=== PATIENT | male | born 1965 | race American Indian/Alaskan Native ===

== ENCOUNTER 2022-05-24 23:05 | Inpatient (IN) | payer MEDICAID ==
--- NOTE | 2022-05-24 23:42 | Emergency Department Report ---
ED General Adult HPI - General Chief complaint: High BP Stated complaint: FALL/BACK PAIN Time Seen by Provider: 05/24/22 23:40 Source: patient, EMS (Verbal report received from emergency medical services. EMS documentation not available at time of chart dictation ), RN notes reviewed Mode of arrival: Ambulatory Limitations: Physical Limitation - History of Present Illness Initial comments: The patient was evaluated in the emergency department for symptoms described in the history of present illness. He/she was evaluated in the context of the global COVID-19 pandemic, which necessitated consideration that the patient might be at risk for infection with the virus that causes COVID-19. Institutional protocols and algorithms that pertain to the evaluation of patients at risk for COVID-19 are in a state of rapid change based on information released by regulatory bodies including the CDC and federal and state organizations. These policies and algorithms were followed during the patient's care in the emergency department. Please note that these policies, procedures and recommendations changed on a rapid basis. This is a 57-year-old gentleman who is legally blind, and who resides in [facility]. He is on hemodialysis and has a right-sided vascular access catheter. He has not received hemodialysis in about a week. He is brought to the hospital today by emergency medical services with an EMS articulated complaint of mechanical fall onto his back. Patient states that he slipped and landed on his right lateral chest and back. He did not hit his head. He currently denies headache, midline neck pain, chest pain, abdominal pain and shortness of breath. He has right-sided rib cage pain, and diffuse back pain. He does produce urine. He denies urinary symptoms. Denies focal extremity weakness and numbness. He does admit that he feels like he is probably due for dialysis. He does not have dialysis access out here in [place]. Location: chest, back, right Quality: aching Consistency: constant Improves with: rest Worsens with: movement - Related Data Allergies Allergy/AdvReac Type Severity Reaction Status Date / Time No Known Allergies Allergy Unverified 05/24/22 23:17 ED Review of Systems ROS: Stated complaint: FALL/BACK PAIN Other details as noted in HPI Constitutional: denies: fever Eyes: denies: eye discharge ENT: denies: epistaxis Respiratory: denies: wheezing Cardiovascular: denies: chest pain Gastrointestinal: denies: abdominal pain Musculoskeletal: back pain, arthralgia, myalgia Neurological: denies: weakness Psychiatric: anxiety ED Physical Exam - General Limitations: Physical Limitation, Other (Patient reports that he is blind) General appearance: alert, anxious, in distress, obese - Head Head exam: Present: atraumatic, normocephalic - Eye Eye exam: Present: normal appearance, EOMI. Absent: nystagmus - ENT ENT exam: Present: normal exam, normal orophraynx, mucous membranes moist, normal external ear exam - Neck Neck exam: Present: normal inspection, full ROM. Absent: tenderness, meningismus - Respiratory Respiratory exam: Present: normal lung sounds bilaterally, chest wall tenderness, other (There is a right-sided thoracic vascular access catheter note d, without redness, pus or streaking). Absent: respiratory distress, wheezes, rales, rhonchi, stridor - Cardiovascular Cardiovascular Exam: Present: normal rhythm, tachycardia, normal heart sounds. Absent: bradycardia, irregular rhythm, systolic murmur, diastolic murmur, rubs, gallop - GI/Abdominal GI/Abdominal exam: Present: soft. Absent: distended, tenderness, guarding, rebound, rigid, pulsatile mass - Rectal Rectal exam: Present: deferred - Extremities Exam Extremities exam: Present: normal inspection, full ROM, other (2+ pulses noted in the bilateral upper and lower extremities. There is no palpable cord. negative Homans sign. Muscular compartments are soft. The pelvis is stable.). Absent: pedal edema, calf tenderness - Back Exam Back exam: Present: normal inspection, muscle spasm, paraspinal tenderness. Absent: CVA tenderness (R), CVA tenderness (L) - Neurological Exam Neurological exam: Present: alert, other (There is no facial droop. The tongue is midline. EOMI. 5 out of 5 strength in 4 extremities) - Psychiatric Psychiatric exam: Present: anxious - Skin Skin exam: Present: warm, dry, intact, normal color. Absent: rash ED Course Vital Signs 05/24/22 05/25/22 05/25/22 23:14 00:13 00:16 Temperature 98.2 F Pulse Rate 120 H Pulse Rate [ Bilateral Throughout] Respiratory 16 Rate Respiratory Rate [Bilateral Throughout] Blood Pressure Blood Pressure 240/120 [Right] O2 Sat by Pulse 98 100 99 Oximetry 05/25/22 05/25/22 05/25/22 00:30 00:31 00:34 Temperature Pulse Rate 84 98 H Pulse Rate [ Bilateral Throughout] Respiratory 12 Rate Respiratory Rate [Bilateral Throughout] Blood Pressure 245/98 245/90 Blood Pressure [Right] O2 Sat by Pulse 99 100 Oximetry 05/25/22 05/25/22 05/25/22 00:46 01:00 01:09 Temperature Pulse Rate 82 81 82 Pulse Rate [ Bilateral Throughout] Respiratory 17 11 L Rate Respiratory Rate [Bilateral Throughout] Blood Pressure 210/87 215/100 183/81 Blood Pressure [Right] O2 Sat by Pulse 96 99 Oximetry 05/25/22 05/25/22 05/25/22 01:16 01:30 01:32 Temperature Pulse Rate 81 82 Pulse Rate [ Bilateral Throughout] Respiratory 13 16 Rate Respiratory Rate [Bilateral Throughout] Blood Pressure 183/82 176/84 Blood Pressure 176/84 [Right] O2 Sat by Pulse 97 99 Oximetry 05/25/22 05/25/22 05/25/22 01:46 02:00 02:11 Temperature Pulse Rate 83 Pulse Rate [ 88 Bilateral Throughout] Respiratory 17 16 Rate Respiratory 23 Rate [Bilateral Throughout] Blood Pressure 185/80 172/79 Blood Pressure [Right] O2 Sat by Pulse 100 98 Oximetry 05/25/22 02:16 Temperature Pulse Rate Pulse Rate [ Bilateral Throughout] Respiratory 17 Rate Respiratory Rate [Bilateral Throughout] Blood Pressure 217/75 Blood Pressure [Right] O2 Sat by Pulse 100 Oximetry - Reevaluation(s) Reevaluation #1: 05/25/22 01:01 Differential diagnosis, including but not limited to: Contusion, soft tissue in jury, hypertensive urgency, azotemia, uremia, hyperkalemia, metabolic acidosis Assessment and plan: 57-year-old gentleman status post mechanical fall. X-ray of the chest shows no fracture or dislocation. T and L-spine x-rays are pending. Patient is also markedly hypertensive. He will likely require dialysis. We will medicate his mechanical pain with morphine. We will withhold NSAIDs. He did not hit his head. Patient is clinically sober at this time. The cervical spine is cleared through nexus and solomon islander c spine rule Initial blood pressure elevated persistently after labetalol, we will redosed labetalol. Patient informed that he will likely require admission to the medical service for hemodialysis. He endorsed that he is agreeable to this plan of care. Currently awaiting laboratory studies 05/25/22 01:04 05/25/22 01:46 Patient is found to have hyperkalemia, metabolic acidosis, azotemia, uremia, and hypocalcemia. Calcium gluconate ordered. Hyperkalemia cocktail ordered. Repeat blood pressure in the 170s/180s. I contacted hospital physician, Dr. Lubin, And nephrology on-call, Dr. Jones I discussed the patient's history, physical, laboratory studies and clinical impression. Nephrology will arrange for emergency hemodialysis. [facility] medicine to arrange admission to the internal medicine service. 05/25/22 04:36 X-ray of the thoracic and lumbar spine negative for acute findings. ED Medical Decision Making - Lab Data Result diagrams: 05/25/22 00:47 05/25/22 00:47 Vital Signs 05/24/22 05/25/22 05/25/22 23:14 00:31 00:34 Temperature 98.2 F Pulse Rate 120 H 98 H Respiratory 16 Rate Blood Pressure 245/90 Blood Pressure 240/120 [Right] O2 Sat by Pulse 98 100 Oximetry Lab Results 05/25/22 05/25/22 05/25/22 Range/Units 00:47 00:47 00:47 WBC 4.8 (4.5-11.0) K/mm3 RBC 3.55 L (3.65-5.03) M/mm3 Hgb 10.9 L (11.8-15.2) gm/dl Hct 34.1 L (35.5-45.6) % MCV 96 H (84-94) fl MCH 31 (28-32) pg MCHC 32 (32-34) % RDW 21.9 H (13.2-15.2) % Plt Count 145 (140-440) K/mm3 Lymph % (Auto) 21.1 (13.4-35.0) % Chambers % (Auto) 8.7 H (0.0-7.3) % Eos % (Auto) 3.6 (0.0-4.3) % Baso % (Auto) 1.2 (0.0-1.8) % Lymph # (Auto) 1.0 L (1.2-5.4) K/mm3 Chambers # (Auto) 0.4 (0.0-0.8) K/mm3 Eos # (Auto) 0.2 (0.0-0.4) K/mm3 Baso # (Auto) 0.1 (0.0-0.1) K/mm3 Seg Neutrophils % 65.4 (40.0-70.0) % Seg Neutrophils # 3.2 (1.8-7.7) K/mm3 PT 14.5 (12.2-14.9) Sec. INR 0.99 (0.87-1.13) Sodium 142 (137-145) mmol/L Potassium 7.2 H* (3.6-5.0) mmol/L Chloride 105.1 (98-107) mmol/L Carbon Dioxide 15 L (22-30) mmol/L Anion Gap 29 mmol/L Creatinine 19.6 H (0.8-1.3) mg/dL Estimated GFR 3 ml/min Glucose 106 H (75-100) mg/dL Calcium 5.9 L* (8.4-10.2) mg/dL Magnesium 2.80 H (1.7-2.3) mg/dL Total Bilirubin 0.20 (0.1-1.2) mg/dL AST 15 (5-40) units/L ALT 12 (7-56) units/L Alkaline Phosphatase 159 H (35-129) units/L Total Creatine Kinase 599 H (55-170) units/L NT-Pro-B Natriuret Pep 6899 H (0-900) pg/mL Total Protein 7.2 (6.3-8.2) g/dL Albumin 4.6 (3.9-5) g/dL Albumin/Globulin Ratio 1.8 % - EKG Data -: EKG Interpreted by Nv EKG shows normal: sinus rhythm Rate: normal - EKG Data When compared to previous EKG there are: previous EKG unavailable 05/25/22 00:58 The EKG is interpreted at 12: 14 Sinus rhythm, 90 bpm. There is a leftward axis deviation, with a left anterior fascicular block. There is symmetric peak T waves, and left ventricular hypertrophy. The QTC is 4 9 9 ms. The NE interval is 201 ms. The patient denies chest pain. This is an abnormal EKG. This is not a STEMI. - Radiology Data Radiology results: pending, report reviewed, image reviewed [facility] [address] [place] [address] XRay Report Signed Patient: RADHA ANTONIO MR#: [id number] : 1965 Acct:[id number] Age/Sex: 57 / M ADM Date: 05/24/22 Loc: ED Attending Dr: Ordering Physician: ASHLEY NESBITT MD Date of Service: 05/24/22 Procedure(s): XR chest routine 2V Accession Number(s): [id number] cc: ASHLEY NESBITT MD Fluoro Time In Minutes: CHEST 2 VIEWS INDICATION / CLINICAL INFORMATION: fall back apin rib pain. COMPARISON: None available. FINDINGS: SUPPORT DEVICES: Right IJ central venous catheter with tip at the cavoatrial junction. HEART / MEDIASTINUM: No significant abnormality. LUNGS / PLEURA: No significant pulmonary or pleural abnormality. No pneumothorax. ADDITIONAL FINDINGS: No significant additional findings. IMPRESSION: 1. No acute findings. Signer Name: Rene Street DO Signed: 05/25/2022 12:21 AM Workstation Name: [id number] Transcribed By: HYACINTH Dictated By: RENE STREET DO Electronically Authenticated By: RENE STREET DO Signed Date/Time: 05/25/2220 DD/ TD/TT: Critical Care Time: Yes Critical care time in (mins) excluding proc time.: 35 Critical care attestation.: If time is entered above; I have spent that time in minutes in the direct care of this critically ill patient, excluding procedure time. ED Disposition Clinical Impression: Hypertensive urgency, malignant, End-stage renal disease needing dialysis, Legally blind, Fall, Back pain, Rib pain on right side, Hyperkalemia, Hypocalcemia Disposition: ADMITTED INPATIENT Is pt being admited?: Yes Does the pt Need Aspirin: No Condition: Serious
[2022-05-24] MEDS ORDERED: MORPHINE 4 MG/1 ML INJ IV ONE (23:52)
--- NOTE | 2022-05-25 00:26 | XRay Report ---
CHEST 2 VIEWS INDICATION / CLINICAL INFORMATION: fall back apin rib pain. COMPARISON: None available. FINDINGS: SUPPORT DEVICES: Right IJ central venous catheter with tip at the cavoatrial junction. HEART / MEDIASTINUM: No significant abnormality. LUNGS / PLEURA: No significant pulmonary or pleural abnormality. No pneumothorax. ADDITIONAL FINDINGS: No significant additional findings. IMPRESSION: 1. No acute findings. Signer Name: Rene Mohr DO Signed: 05/25/2022 12:21 AM Workstation Name: [id number]
[2022-05-25 01:10] LABS: Basophils # (Auto) 0.1 K/mm3 (0.0-0.1); Basophils % (Auto) 1.2 % (0.0-1.8); Eosinophils # (Auto) 0.2 K/mm3 (0.0-0.4); Eosinophils % (Auto) 3.6 % (0.0-4.3); Hematocrit 34.1 % (35.5-45.6); Hemoglobin 10.9 gm/dl (11.8-15.2); Lymphocytes % (Auto) 21.1 % (13.4-35.0); Mean Corpuscular HGB Conc 32 % (32-34); Mean Corpuscular Volume 96 fl (84-94); Monocytes # (Auto) 0.4 K/mm3 (0.0-0.8); Monocytes % (Auto) 8.7 % (0.0-7.3); Platelet Count 145 K/mm3 (140-440); Red Blood Count 3.55 M/mm3 (3.65-5.03)
[2022-05-25 01:12] LABS: Red Cell Distribution Width 21.9 % (13.2-15.2)
[2022-05-25 01:35] LABS: Albumin 4.6 g/dL (3.9-5)
[2022-05-25 01:40] LABS: Calcium 5.9 mg/dL (8.4-10.2); INR 0.99 (0.87-1.13)
[2022-05-25] MEDS ORDERED: INSULIN REGULAR, HUMAN 100 UNITS/1 ML IV ONE (01:40)
[2022-05-25] MEDS ORDERED: DEXTROSE 50% IN WATER (25GM) 50 ML SYRINGE IV ONE (01:40)
[2022-05-25] MEDS ORDERED: ALBUTEROL 2.5 MG/3 ML NEBU IH ONE (01:40)
[2022-05-25] MEDS ORDERED: SODIUM POLYSTYRENE 15 GM/60 ML ORAL LIQD PO ONE (01:40)
[2022-05-25] MEDS ORDERED: SODIUM BICARB 8.4% 50 MEQ/50 ML SYRINGE IV ONE (01:41)
[2022-05-25] MEDS ORDERED: MORPHINE 2 MG/1 ML INJ IV PRN (02:04)
[2022-05-25] MEDS ORDERED: ACETAMINOPHEN 325 MG TAB PO PRN (02:04)
[2022-05-25] MEDS ORDERED: ONDANSETRON 4 MG/2 ML INJ IV PRN (02:04)
[2022-05-25] MEDS ORDERED: ALBUTEROL 2.5 MG/3 ML NEBU IH PRN (02:04)
--- NOTE | 2022-05-25 02:10 | History and Physical Report ---
History of Present Illness Date of examination: 05/25/22 Date of admission: 05/25/22 Chief complaint: High blood pressure Fall Back pain History of present illness: 57-year-old with history of end-stage renal disease on hemodialysis and blindness, who resides in [facility] was brought to the hospital because of high blood pressure, fall and back pain. He is on hemodialysis and has a right-sided vascular access catheter. He has not received hemodialysis in about a week. He is brought to the hospital today by emergency medical services with an EMS articulated complaint of mechanical fall onto his back. Patient states that he slipped and landed on his right lateral chest and back. He did not hit his head. He currently denies headache, midline neck pain, chest pain, abdominal pain and shortness of breath. He has right-sided rib cage pain, and diffuse back pain. He does produce urine. He denies urinary symptoms. Denies focal extremity weakness and numbness. In the emergency room patient is found to have potassium of 7.2, BUN of 114 and creatinine 19.6, bicarb 15 and calcium 5.9. Patient does not have any hemodialysis access in [place]. Subsequently Case was discussed with on-call personal financial counselor patient already get insulin, D50, calcium gluconate. Nephrology will do the emergent dialysis. Past History Past Medical History: ESRD (Legally blind), renal failure, other Past Surgical History: No surgical history Social history: no significant social history Family history: hypertension Medications and Allergies Allergies Allergy/AdvReac Type Severity Reaction Status Date / Time No Known Allergies Allergy Unverified 05/24/22 23:17 Active Meds: Active Medications Acetaminophen (Acetaminophen 325 Mg Tab) 650 mg PO Q4H PRN PRN Reason: Pain MILD(1-3)/Fever >100.5/JONES Albuterol (Albuterol 2.5 Mg/3 Ml Nebu) 2.5 mg IH Q3HRT PRN PRN Reason: Shortness Of Breath Albuterol/Ipratropium (Ipratropium/Albuterol Sulfate 3 Ml Ampul.Neb) 1 ampul IH Q6HRT ABE Famotidine (Famotidine 20 Mg Tab) 20 mg PO BID ABE Calcium Gluconate 2,000 mg/ (Sodium Chloride) 120 mls @ 660 mls/hr IV ONCE ONE Stop: 05/25/22 02:50 Morphine Sulfate (Morphine 2 Mg/1 Ml Inj) 2 mg IV Q4H PRN PRN Reason: Pain, Moderate (4-6) Morphine Sulfate (Morphine 4 Mg/1 Ml Inj) 4 mg IV Q4H PRN PRN Reason: Pain , Severe (7-10) Ondansetron HCl (Ondansetron 4 Mg/2 Ml Inj) 4 mg IV Q8H PRN PRN Reason: Nausea And Vomiting Sodium Chloride (Sodium Chloride 0.9% 10 Ml Flush Syringe) 10 ml IV BID ABE Sodium Chloride (Sodium Chloride 0.9% 10 Ml Flush Syringe) 10 ml IV PRN PRN PRN Reason: LINE FLUSH Review of Systems All systems: negative Constitutional: other (Complaint fall back pain, right-sided rib cage pain) Exam - Constitutional Vitals: Temp Pulse Resp BP Pulse Ox 98.2 F 82 16 176/84 99 05/24/22 23:14 05/25/22 01:30 05/25/22 01:30 05/25/22 01:32 05/25/22 01:30 General appearance: Present: no acute distress, well-nourished - EENT Eyes: Present: PERRL ENT: hearing intact, clear oral mucosa - Neck Neck: Present: supple, normal ROM - Respiratory Respiratory effort: normal Respiratory: bilateral: diminished - Cardiovascular Heart Sounds: Present: S1 & S2. Absent: rub, click - Extremities Extremities: pulses symmetrical, No edema Peripheral Pulses: within normal limits - Abdominal General gastrointestinal: Present: soft, non-tender, non-distended, normal bowel sounds Male genitourinary: Present: normal - Integumentary Integumentary: Present: clear, warm, dry - Musculoskeletal Musculoskeletal: gait normal, strength equal bilaterally - Psychiatric Psychiatric: appropriate mood/affect, intact judgment & insight - Neurologic Neurologic: CNII-XII intact, moves all extremities Results - Labs CBC & Chem 7: 05/25/22 00:47 05/25/22 00:47 Labs: Laboratory Last Values WBC 4.8 K/mm3 (4.5-11.0) 05/25/22 00:47 RBC 3.55 M/mm3 (3.65-5.03) L 05/25/22 00:47 Hgb 10.9 gm/dl (11.8-15.2) L 05/25/22 00:47 Hct 34.1 % (35.5-45.6) L 05/25/22 00:47 MCV 96 fl (84-94) H 05/25/22 00:47 MCH 31 pg (28-32) 05/25/22 00:47 MCHC 32 % (32-34) 05/25/22 00:47 RDW 21.9 % (13.2-15.2) H 05/25/22 00:47 Plt Count 145 K/mm3 (140-440) 05/25/22 00:47 Lymph % (Auto) 21.1 % (13.4-35.0) 05/25/22 00:47 [place] % (Auto) 8.7 % (0.0-7.3) H 05/25/22 00:47 Eos % (Auto) 3.6 % (0.0-4.3) 05/25/22 00:47 Baso % (Auto) 1.2 % (0.0-1.8) 05/25/22 00:47 Lymph # (Auto) 1.0 K/mm3 (1.2-5.4) L 05/25/22 00:47 [place]uming # (Auto) 0.4 K/mm3 (0.0-0.8) 05/25/22 00:47 Eos # (Auto) 0.2 K/mm3 (0.0-0.4) 05/25/22 00:47 Baso # (Auto) 0.1 K/mm3 (0.0-0.1) 05/25/22 00:47 Seg Neutrophils % 65.4 % (40.0-70.0) 05/25/22 00:47 Seg Neutrophils # 3.2 K/mm3 (1.8-7.7) 05/25/22 00:47 PT 14.5 Sec. (12.2-14.9) 05/25/22 00:47 INR 0.99 (0.87-1.13) 05/25/22 00:47 Sodium 142 mmol/L (137-145) 05/25/22 00:47 Potassium 7.2 mmol/L (3.6-5.0) H* 05/25/22 00:47 Chloride 105.1 mmol/L (98-107) 05/25/22 00:47 Carbon Dioxide 15 mmol/L (22-30) L 05/25/22 00:47 Anion Gap 29 mmol/L 05/25/22 00:47 BUN 114 mg/dL (9-20) H 05/25/22 00:47 Creatinine 19.6 mg/dL (0.8-1.3) H 05/25/22 00:47 Estimated GFR 3 ml/min 05/25/22 00:47 BUN/Creatinine Ratio 6 % 05/25/22 00:47 Glucose 106 mg/dL (75-100) H 05/25/22 00:47 Calcium 5.9 mg/dL (8.4-10.2) L* 05/25/22 00:47 Magnesium 2.80 mg/dL (1.7-2.3) H 05/25/22 00:47 Total Bilirubin 0.20 mg/dL (0.1-1.2) 05/25/22 00:47 AST 15 units/L (5-40) 05/25/22 00:47 ALT 12 units/L (7-56) 05/25/22 00:47 Alkaline Phosphatase 159 units/L (35-129) H 05/25/22 00:47 Total Creatine Kinase 599 units/L (55-170) H 05/25/22 00:47 NT-Pro-B Natriuret Pep 6899 pg/mL (0-900) H 05/25/22 00:47 Total Protein 7.2 g/dL (6.3-8.2) 05/25/22 00:47 Albumin 4.6 g/dL (3.9-5) 05/25/22 00:47 Albumin/Globulin Ratio 1.8 % 05/25/22 00:47 - Imaging and Cardiology Chest x-ray: report reviewed Assessment and Plan VTE prophylaxis?: Mechanical Plan of care discussed with patient/family: Yes - Patient Problems (1) End-stage renal disease needing dialysis Current Visit: Yes Status: Acute Plan to address problem: Admit the patient to the [facility]. Renal diet. Patient already get insulin 10 unit IV x1 dose, D50, calcium gluconate 1 g. Will consult nephrology for emergent dialysis. Recheck BMP in the morning (2) Hyperkalemia Current Visit: Yes Status: Acute Plan to address problem: Patient already get insulin 10 unit IV x1 dose, D50, calcium gluconate 1 g. Will consult nephrology for emergent dialysis. Recheck BMP in the morning (3) Hypertensive urgency, malignant Current Visit: Yes Status: Acute Plan to address problem: Hydralazine 10 mg IV every 6 hours as needed. Labetalol 10 mg IV x1 dose. We continue the home medication we will monitor the blood pressure closely (4) Back pain Current Visit: Yes Status: Acute Plan to address problem: Tylenol 650 mg p.o. every 6 hours as needed. Morphine 2 mg IV every 4 hours as needed. We will monitor the patient closely (5) Fall Current Visit: Yes Status: Acute Plan to address problem: Patient is on fall precaution. Will consult physical therapy for evaluation (6) Hypocalcemia Current Visit: Yes Status: Acute Plan to address problem: Calcium gluconate IV x1 dose. Recheck BMP in the morning (7) Legally blind Current Visit: Yes Status: Acute Plan to address problem: We will monitor the patient closely (8) Rib pain on right side Current Visit: Yes Status: Acute Plan to address problem: Tylenol 650 mg p.o. every 6 hours as needed. Morphine 2 mg IV every 4 hours as needed. We will monitor the patient closely (9) DVT prophylaxis Current Visit: Yes Status: Acute Plan to address problem: SCD for DVT prophylaxis. Pepcid 20 mg p.o. twice daily for GI prophylaxis. Patient is a full code
--- NOTE | 2022-05-25 02:17 | XRay Report ---
THORACIC SPINE 2 VIEWS INDICATION / CLINICAL INFORMATION: fall back pain rib pain. COMPARISON: None available. FINDINGS: VERTEBRAE: No acute fracture. No significant malalignment. DISC SPACES / FACET JOINTS:Scattered spondylosis. PARASPINAL SOFT TISSUES:No significant abnormality. ADDITIONAL FINDINGS: None. Signer Name: Rene Mohr DO Signed: 05/25/2022 2:13 AM Workstation Name: [id number]
--- NOTE | 2022-05-25 02:17 | XRay Report ---
LUMBAR SPINE 2 VIEWS INDICATION / CLINICAL INFORMATION: fall back pain. COMPARISON: None available. FINDINGS: VERTEBRAE: No acute fracture. No significant malalignment. DISC SPACES / FACET JOINTS:There is scattered degenerative disc disease throughout the lumbar spine. PARASPINAL SOFT TISSUES:Calcific atherosclerosis. ADDITIONAL FINDINGS: None. Signer Name: Rene Mohr DO Signed: 05/25/2022 2:12 AM Workstation Name: [id number]
[2022-05-25] MEDS ORDERED: CALCIUM GLUCONATE 2,000 MG in SODIUM CHLORIDE 0.9% 100 ML IV ONE (02:40)
[2022-05-25] MEDS: MORPHINE 4 MG/1 ML INJ IV PRN ×3 (02:57→12:35)
[2022-05-25 05:21] LABS: Hepatitis B Surface Antigen Non-Reactive (Negative); Hepatitis C Virus Antibody Non-Reactive (NonReactive)
[2022-05-25] MEDS ORDERED: IPRATROPIUM/ALBUTEROL SULFATE 3 ML AMPUL.NEB IH SCH (08:00)
[2022-05-25 08:53] LABS: Calcium 7.3 mg/dL (8.4-10.2)
--- NOTE | 2022-05-25 09:53 | Consultation ---
History of Present Illness - Reason for Consult Consult date: 05/25/22 end stage renal disease - History of Present Illness 57-year-old with history of end-stage renal disease on hemodialysis and blindness, who resides in [facility] was brought to the hospital because of high blood pressure, fall and back pain. He is on hemodialysis and has a right-sided vascular access catheter. He has not received hemodialysis in about a week. he was found to have severe hyerpakelemia with EKG changes and STAT HD was ordered last night. Past History Past Medical History: ESRD (Legally blind), renal failure, other Past Surgical History: No surgical history Social history: no significant social history Family history: hypertension Medications and Allergies Allergies Allergy/AdvReac Type Severity Reaction Status Date / Time No Known Allergies Allergy Unverified 05/24/22 23:17 Active Meds: Active Medications Acetaminophen (Acetaminophen 325 Mg Tab) 650 mg PO Q4H PRN PRN Reason: Pain MILD(1-3)/Fever >100.5/JONES Albuterol (Albuterol 2.5 Mg/3 Ml Nebu) 2.5 mg IH Q3HRT PRN PRN Reason: Shortness Of Breath Albuterol/Ipratropium (Ipratropium/Albuterol Sulfate 3 Ml Ampul.Neb) 1 ampul IH Q6HRT [facility] Last Admin: 05/25/22 08:10 Dose: 1 ampul Amlodipine Besylate (Amlodipine 10 Mg Tab) 10 mg PO QDAY [facility] Famotidine (Famotidine 20 Mg Tab) 20 mg PO QAM [facility] Last Admin: 05/25/22 09:22 Dose: 20 mg Hydralazine HCl (Hydralazine 25 Mg Tab) 50 mg PO Q8HR [facility] Labetalol HCl (Labetalol 100 Mg Tab) 100 mg PO Q8HR [facility] Labetalol HCl (Labetalol 20 Mg/4 Ml Inj) 10 mg IV ONCE@0930 [facility] Stop: 05/25/22 14:00 Last Admin: 05/25/22 09:22 Dose: 10 mg Losartan Potassium (Losartan 50 Mg Tab) 100 mg PO QDAY [facility] Morphine Sulfate (Morphine 2 Mg/1 Ml Inj) 2 mg IV Q4H PRN PRN Reason: Pain, Moderate (4-6) Morphine Sulfate (Morphine 4 Mg/1 Ml Inj) 4 mg IV Q4H PRN PRN Reason: Pain , Severe (7-10) Last Admin: 05/25/22 08:33 Dose: 4 mg Ondansetron HCl (Ondansetron 4 Mg/2 Ml Inj) 4 mg IV Q8H PRN PRN Reason: Nausea And Vomiting Sodium Chloride (Sodium Chloride 0.9% 10 Ml Flush Syringe) 10 ml IV BID ABE Last Admin: 05/25/22 09:21 Dose: 10 ml Sodium Chloride (Sodium Chloride 0.9% 10 Ml Flush Syringe) 10 ml IV PRN PRN PRN Reason: LINE FLUSH Review of Systems All systems: negative (weakness) Exam - Vital Signs Vital signs: Vital Signs Temp Pulse Resp BP Pulse Ox 98.2 F 120 H 16 240/120 98 05/24/22 23:14 05/24/22 23:14 05/24/22 23:14 05/24/22 23:14 05/24/22 23:14 Results - Lab Results 05/25/22 00:47 05/25/22 08:28 Most recent lab results Calcium 7.3 mg/dL (8.4-10.2) L D 05/25/22 08:28 Magnesium 2.80 mg/dL (1.7-2.3) H 05/25/22 00:47 Assessment and Plan (1) End-stage renal disease needing dialysis (2) Hyperkalemia (3) Hypertensive urgency, malignant (4) Back pain (5) Fall (6) Hypocalcemia (7) Legally blind (8) Rib pain on right side S/P STAT HD last night will assess needs for HD daily hyperkalemia has resolved renally dose meds strict I&O daily weight
[2022-05-25] MEDS ORDERED: LOSARTAN 50 MG TAB PO SCH (10:00)
[2022-05-25] MEDS ORDERED: amLODIPine 10 MG TAB PO SCH (10:00)
[2022-05-25] MEDS ORDERED: FAMOTIDINE 20 MG TAB PO SCH (10:00)
[2022-05-25] MEDS ORDERED: hydrALAZINE 20 MG/1 ML INJ IV PRN (11:30)
--- NOTE | 2022-05-25 12:18 | Electrocardiograph Report ---
[facility] Test Date: 2022-05-25 Test Time: 00:14:56 Pat Name: RADHA ANTONIO Department: Room: A262 1 Gender: M Test Administrator: BREANNA : 1965 Requested By: ASHLEY NESBITT Order Number: [id number] Reading MD: Luis Miguel Pack Measurements Intervals [place] Rate: 90 P: 60 IA: 201 QRS: -5 QRSD: 84 T: 113 QT: 408 QTc: 499 Interpretive Statements Sinus rhythm Probable left atrial enlargement Probable left ventricular hypertrophy Anterior Q waves, possibly due to LVH ST elevation in V1-2,?secondary to LVH,correlateclinically. Abnormal T, consider ischemia, lateral leads No previous ECG available for comparison Electronically Signed On 05-25-2022 12:18:05 EDT by Luis Miguel Pack
[2022-05-25] MEDS ORDERED: hydrALAZINE 25 MG TAB PO SCH (14:00)
[2022-05-25 14:15] VITALS: BP 186/85
--- NOTE | 2022-05-25 14:52 | Discharge Summary ---
Providers - Providers Date of Admission: 05/25/22 02:04 Date of discharge: 05/25/22 Attending physician: CYNDI GARCIA MD 05/25/22 01:43 Consult to Physician [CONS] Urgent Comment: Dr. Miller spoke with Dr. Jones @ [phone] Consulting Provider: ELIZA JONES Physician Instructions: Reason For Exam: esrd hyperkalemia Primary care physician: YOSEF LUQUE Hospitalization Condition: Serious Hospital course: This is a 57-year-old male with ESRD on HD, blindness, HTN who presented to emergency department on 05/24 via EMS with a fall to his right lateral chest and back from [place]. Patient has missed dialysis for the past week. On arrival to the emergency department patient was hypertensive to 240/120 and was given IV labetalol x2. Lab work showed hyperkalemia, metabolic acidosis, and uremia, uremia and hypocalcemia. Patient was given-calcium gluconate and hyperkalemia cocktail. Patient was admitted to the hospitalist service with needing emergent dialysis and hypertensive emergency with consults to nephrology. Patient received emergent hemodialysis on 05/25. Later this morning the patient's blood pressure was harder to control and his home medications were restarted and he received IV push labetalol and hydralazine. Despite still being hypertensive patient decided to leave AGAINST MEDICAL ADVICE. Assessment and plan: This is a 57-year-old male with ESRD on HD, blindness, HTN who presented with hyperkalemia, hypertensive emergency, hypocalcemia, metabolic acidosis, azotemia, uremia Neuro: Medical noncompliance, s/p fall, h/o legally blindness -Reorientation as needed -Maintain sleep-wake cycle -As needed analgesia -Thoracic and lumbar x-ray showed no acute processes Cardiac: Hypertensive emergency (resolving), h/o HTN, HLD -Blood pressure monitoring per protocol -S/p labetalol IV x2 in the ED -As needed labetalol and hydralazine -Restarted home amlodipine, hydralazine, labetalol and losartan -Resume home Lipitor Respiratory: NAD -Supplemental oxygen as needed -SPO2 monitoring -Pulmonary hygiene GI: NAD -PPI -Cardiac renal diet : ESRD on HD, hyperkalemia (resolved), hypercalcemia (resolved) -Nephrology consulted, appreciate recommendations -Monitor intake and output -Admitted with proBNP 6899 -Renally dose medications -Avoid nephrotoxic medications -Trend BMP ID: NAD -Monitor WBC and temperature curve Endo: NAD -Avoid hypoglycemia Heme: Anemia of chronic disease -Trend CBC -Transfuse hemoglobin less than 7 -SCDs to BLE while in bed Disposition: LEFT AGAINST MEDICAL ADVICE Final Discharge Diagnosis (Prints w/discharge instructions): Medical noncompliance, s/p fall, h/o legally blindness, Hypertensive emergency (resolving), h/o HTN, HLD, ESRD on HD, hyperkalemia (resolved), hypercalcemia (resolved), Anemia of chronic disease Time spent for discharge: 60 Core Measure Documentation - Palliative Care Palliative Care/ Comfort Measures: Not Applicable - Core Measures Any of the following diagnoses?: none Exam - Constitutional Vitals: Temp Pulse Resp BP Pulse Ox 97.8 F 89 12 186/85 98 05/25/22 12:04 05/25/22 14:15 05/25/22 14:00 05/25/22 14:16 05/25/22 14:00 General appearance: Present: well-nourished - EENT Eyes: Present: PERRL, EOM intact - Neck Neck: Present: normal ROM - Respiratory Respiratory effort: normal Respiratory: bilateral: diminished - Cardiovascular Rhythm: regular Heart Sounds: Present: S1 & S2. Absent: systolic murmur, diastolic murmur - Extremities Extremities: no ischemia, pulses intact, pulses symmetrical, normal temperature, normal color, Full ROM Extremity abnormal: edema Peripheral Pulses: within normal limits - Abdominal General gastrointestinal: Present: soft, non-tender, non-distended, normal bowel sounds - Integumentary Integumentary: Present: warm, dry - Musculoskeletal Musculoskeletal: strength equal bilaterally - Psychiatric Psychiatric: cooperative, agitated - Neurologic Neurologic: CNII-XII intact, no focal deficits, moves all extremities - Allied Health Allied health notes reviewed: nursing, RT, social work Plan Activity: advance as tolerated Diet: low fat, low cholesterol, low salt, low protein, renal Wound: per wound nurse instructions Special Instructions: record daily weights, record daily BP diary Follow up with: YOSEF LUQUE MD [Primary Care Provider] - 3-5 Days
--- NOTE | 2022-05-26 09:37 | Electrocardiograph Report ---
[facility] Test Date: 2022-05-25 Test Time: 08:26:07 Pat Name: RADHA ANTONIO Department: Room: A262 1 Gender: M Director Economic: KELSEA : 1965 Requested By: CYNDI GARCIA Order Number: [id number] Reading MD: Luis Miguel Pack Measurements Intervals [place] Rate: 104 P: 55 UT: 171 QRS: 21 QRSD: 78 T: 201 QT: 362 QTc: 477 Interpretive Statements Sinus tachycardia Probable LVH with secondary repol abnrm Anterior Q waves, possibly due to LVH Compared to ECG 05/25/2022 00:14:56 T-wave abnormality no longer present Possible ischemia no longer present Electronically Signed On 05-26-2022 9:36:46 EDT by Luis Miguel Pack
== END 2022-05-25 14:42 | disposition left against medical advice (07) | DRG 640 ==
LOC: ED 23:05 → CC1 05-25 02:04
PROVIDERS: ADMIT Hospitalist; ATTEND Internal Medicine
DX: E87.5 Hyperkalemia (principal); N18.6 End stage renal disease; I16.0 Hypertensive urgency; R07.81 Pleurodynia; E78.5 Hyperlipidemia, unspecified; D64.9 Anemia, unspecified; E83.51 Hypocalcemia; Z91.14 Patient's other noncompliance with medication regimen
CPT/HCPCS: 36415; 71046; 72070; 72100; 80048; 80053; 80074; 82550; 83735; 83880; 85025; 85610; 93005; 94640; 94644; 99406; G0378; J3490; Q9967; J0360; J0610; J1815; J2270